=== PATIENT | male | born 1990 | race Caucasian/White ===

== ENCOUNTER 2020-11-19 11:06 | Emergency (ER) | payer OTHER, SELFPAY ==
--- NOTE | ~2020-11-19 | XR_ITS ---
EXAMINATION: XR tibia fibula LT 2V INDICATION: Left leg pain TECHNIQUE: Two views of the left tibia and fibula are obtained. COMPARISON: None available FINDINGS: There is soft tissue swelling overlying the anterior aspect of the distal leg. No underlyin g osseous abnormality is identified. Bone alignment at the knee and ankle is normal. There is no frac ture. IMPRESSION: 1. Soft tissue swelling without acute osseous abnormality. Reviewed, dictated and finalized at [facility].
[2020-11-19 11:19] VITALS: BP 133/74; PULSE 114; RESP 16; TEMP 36.1; O2SAT 100
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
== END 2020-11-19 12:01 | disposition home or self-care (01) ==
PROVIDERS: Emergency Provider Nurse Practitioner
DX: S80.12XA Contusion of left lower leg, initial encounter (principal); V43.52XA Car driver injured in collision with other type car in traffic accident, initial encounter
CPT/HCPCS: 73590; 99203; G0463

== ENCOUNTER 2021-05-14 17:40 | Emergency (ER) | payer SELFPAY ==
[2021-05-14 17:50] VITALS: BP 133/87; PULSE 108; RESP 20; TEMP 36.8; O2SAT 98
--- NOTE | 2021-05-14 17:55 | ED.ABDPAIN ---
HPI - Abdominal Pain General Chief Complaint: Abdominal Pain Stated Complaint: vomitting, abdominal pain Time Seen by Provider: 05/14/21 17:55 Source: patient, family (Mom), RN notes reviewed and old records reviewed Mode of arrival: ambulatory Limitations: no limitations History of Present Illness HPI narrative: 30-year-old male presents to the [facility] with complaints of right lower quadrant pain with tenderness throughout, rebound tenderness right lower quadrant pain nausea vomiting and diarrhea for the last couple of days. Unknown fevers but has had chills. MD elicited complaint: abdominal pain Related Data Home Medications Medication Instructions Recorded Confirmed No Home Medications 11/19/20 11/19/20 Allergies Allergy/AdvReac Type Severity Reaction Status Date / Time erythromycin base Allergy Severe Anaphylactic Verified 05/14/21 18:14 Shock Penicillins Allergy Severe Anaphylactic Verified 05/14/21 18:14 Shock codeine AdvReac Mild Nausea and Verified 05/14/21 18:14 Vomiting Review of Systems Review of Systems: All systems reviewed & are unremarkable except as noted in HPI and below Constitutional: Constitutional: Reports as per HPI, Reports chills and Denies fever(s) Eyes: Eyes: Reports no additional eye complaints ENT: Reports system reviewed and no additional complaints, except as documented Cardiovascular: Cardiovascular: Reports no additional cardiovascular complaints Respiratory: Respiratory: Reports no additional respiratory complaints Gastrointestinal: Gastrointestinal: Reports as per HPI, Reports abdominal pain, Reports diarrhea, Reports nausea and Reports vomiting Musculoskeletal: Musculoskeletal: Reports no additional musculoskeletal complaints Integumentary/Breasts: Skin/Breast: Reports system reviewed and no additional complaints, except as docu Neurologic: Reports system reviewed and no additional complaints, except as documented Psychiatric: Psychiatric: Reports no additional psychiatric complaints Allergic/Immunologic: Allergic/Immunologic: Reports no additional allergic/immunologic complaints [facility] Past Medical History Medical History (Updated 05/14/21 @ 18:18 by Cheri Baumann APRN) Patient denies medical problems Surgical History Surgical History (Updated 05/14/21 @ 18:16 by Cheri Baumann APRN) No pertinent past surgical history Social History Social History (Updated 05/14/21 @ 18:16 by Cheri Baumann APRN) Living arrangements: with family Gender identity (if verbalized by the patient): Male Comments At the time of my signature, I reviewed and agree with the nursing past medical, surgical, social, and family history. There is no relevant family history pertinent to the patient complaint. Exam Const: General: no acute distress, alert, acute distress mild and ill appearing acutely Nutritional Appearance: well nourished and obese Orientation/consciousness: patient oriented x3 Limitations: no limitations HENMT: Head: normal to inspection Ears: external ears normal Eyes: Pupils: Equal, round and reactive pupils present Neck: Neck: normal visual inspection, no lymphadenopathy and no meningeal signs Chest: Chest palpation & inspection: normal inspection of the chest Resp: Effort & Inspection: normal respiratory effort and no use of accessory muscles Auscultation: clear to auscultation bilaterally, no crackles, no rales, no rhonchi and no wheezes Cardio: Rate: regular rate Rhythm: regular rhythm GI: GI Palp: Yes Soft to palpation, Yes Tenderness to palpation present (GI), Yes Guarding due to palpation present (GI) and Yes Rebound tenderness present (Right lower quadrant) Auscultation: Hypoactive bowel sounds present Skin: General skin exam: normal color Rashes: no rashes Wounds: no wounds Neuro: General: patient oriented x3, moves all extremities, no meningeal signs and no focal motor deficits Cranial nerves: Yes Equal, round and
[2021-05-14 18:14] VITALS: BP 133/87; PULSE 108; RESP 20; TEMP 36.8; O2SAT 98
== END 2021-05-14 18:15 | disposition short-term general hospital (02) ==
PROVIDERS: Emergency Provider Nurse Practitioner; PCP Physician Assistant
DX: R10.31 Right lower quadrant pain (principal)
CPT/HCPCS: 99212; G0463

== ENCOUNTER 2021-05-14 19:07 | Emergency (ER) | payer SELFPAY ==
--- NOTE | ~2021-05-14 | CT_ITS ---
EXAMINATION: CT abdomen pelvis w con DATE: 05/14/2021 20:02 INDICATION: Generalized abdominal pain for one week. TECHNIQUE: Computed tomography (CT) of the abdomen and pelvis was performed with 100 CC Omnipaque 350 intravenous contrast. Automated exposure control and iterative reconstruction technique were employe d. Exam dose: 927.43 mGy-cm total exam DLP. COMPARISON: 03/14/2013 CT chest abdomen pelvis FINDINGS: The lung bases are clear. Normal heart size. No pericardial or pleural effusion. Very small sliding hiatal hernia. Diffuse hepatic steatosis. The liver, gallbladder, bile ducts, pancreas, pancreatic duct, spleen, and adrenal glands and kidneys are otherwise unremarkable. No urinary tract calculus or hydroureteroneph rosis. The urinary bladder and prostate gland and seminal vesicles are unremarkable. There is a small amount of free fluid in the dependent lower pelvis. Normal caliber of the abdominal aorta. No intraperitoneal or retroperitoneal or pelvic mass lesion or adenopathy. Very small fat-containing umbilical hernia. Normal appendix. There is nonspecific fluid distention of distal ileum primarily., Without abnormal dilatation, bowel wall thickening or pneumatosis. Consider mild adynamic ileus versus nonspecific infectious or inflamm atory enteritis. There is no abnormal distention or thickening of the wall of the colon. No intraperi toneal free air. Mild degenerative spurring of the thoracic spine. Included skeletal structures are otherwise unremark able. IMPRESSION: Nonspecific fluid distended ileum; consider mild ileus, inflammatory or infectious enter itis Normal appendix Small nonspecific fluid accumulation in the lower dependent pelvis Reviewed, dictated and finalized at [facility]. Reviewed, dictated and finalized at [facility]. IMPRESSION: Nonspecific fluid distended ileum; consider mild ileus, inflammato ry or infectious enteritis Normal appendix Small nonspecific fluid accumulation in the lower dependent pelvis
[2021-05-14 19:08] VITALS: BP 131/95; PULSE 112; RESP 18; TEMP 36.4; O2SAT 99
[2021-05-14] MEDS: ONDANSETRON INJ 4 MG/2 ML VIAL IV PUSH (19:42)
[2021-05-14] MEDS: SODIUM CHLORIDE 0.9% IV 1,000 ML 999 ML IV CONT (19:42)
[2021-05-14] MEDS: MORPHINE SULFATE (*CRX) 4 MG/ML INJ IV PUSH (19:44)
--- NOTE | 2021-05-14 20:36 | ED.ABDPAIN ---
HPI - Abdominal Pain General Chief Complaint: Abdominal Pain Stated Complaint: abdominal pain Time Seen by Provider: 05/14/21 19:20 Source: RN notes reviewed History of Present Illness HPI narrative: Patient presents emergency department from home for abdominal pain. Patient states symptoms began approximately 1 week ago and increased yesterday with pain in the right lower quadrant pain is described as cramping in nature. Has been associated with nausea vomiting and diarrhea he denies any fevers or chills chest pain shortness of breath or any other symptoms. States he not taking thing for pain at home patient was seen in the emergency department earlier in the left ago seen to be seen in urgent care and had been referred back from urgent care for rule out appendicitis lab work was done initial evaluation Related Data Allergies Allergy/AdvReac Type Severity Reaction Status Date / Time erythromycin base Allergy Severe Anaphylactic Verified 05/14/21 18:14 Shock Penicillins Allergy Severe Anaphylactic Verified 05/14/21 18:14 Shock codeine AdvReac Mild Nausea and Verified 05/14/21 18:14 Vomiting Review of Systems Review of Systems: Gen.: Denies fevers or chills ENT: Denies congestion Respiratory: Denies shortness of breath or cough CV: Denies chest pain or palpitations GI: See HPI denies burning, urgency, frequency or hematuria Musculoskeletal: Denies back pain or muscle pain Neuro: Denies numbness, tingling, weakness or focal weakness Skin: Denies rash Except as documented, all other systems reviewed and negative PMFSH Past Medical History Medical History Patient denies medical problems Surgical History Surgical History (Updated 05/14/21 @ 18:16 by Cheri Baumann APRN) No pertinent past surgical history Social History Social History Gender identity (if verbalized by the patient): Male Exam Narrative: APPEARANCE: No acute distress, nontoxic, resting in bed HEENT: Normocephalic, atraumatic, OMM RESPIRATORY: No respiratory distress, clear to auscultation bilaterally with no rhonchi wheezing or rales CARDIOVASCULAR: RRR s murmur ABDOMINAL: Soft nondistended diffusely tender palpation with increased tenderness right lower quadrant no rebound or guarding MUSCULOSKELETAl: Moves all extremities. No clubbing, cyanosis or edema. NEURO: Awake and alert. Following commands, speech normal, no focal deficits SKIN:: Warm, dry. Normal Color PSYCHIATRIC: Normal affect/mood Course Course Emergency Course: Reviewed records from before including lab results Patient states that they are feeling much better at this time. States abdominal pain has improved.. Repeat abdominal exam shows the patient's abdomen to be soft with no surgical abdomen present. Discussed with patient results of workup and diagnosis. Discussed need for follow-up with primary care physician, reasons to return to the emergency department in proper use of medication. Patient understands and agrees to current treatment plan Vital Signs Vital signs: Vital Signs Temperature 97.5 F L 05/14/21 19:08 Pulse Rate 112 H 05/14/21 19:08 Respiratory Rate 18 05/14/21 19:08 Blood Pressure 131/95 H 05/14/21 19:08 Pulse Oximetry 99 05/14/21 19:08 Temperature 97.5 F L 05/14/21 19:08 Pulse Rate 112 H 05/14/21 19:08 Respiratory Rate 18 05/14/21 19:08 Blood Pressure 131/95 H 05/14/21 19:08 Pulse Oximetry 99 05/14/21 19:08 MDM - Abdominal Pain MDM Narrative Medical decision making narrative: Patient's abdomen is soft without significant pain or signs of surgical abdomen on serial exams. Lab and x-ray evaluations are reviewed and patient is felt to be a reasonable candidate for outpatient management. Patient was instructed as to limitations of x-ray and laboratory evaluation and encouraged to return to ED or primary physici
[2021-05-14] MEDS: KETOROLAC 30 MG/ML VIAL (*BKC) IV PUSH (20:45)
[2021-05-14] MEDS: metroNIDAZOLE 250 MG TABLET 500 MG PO (20:46)
[2021-05-14 21:01] VITALS: BP 133/92; PULSE 95; RESP 17; O2SAT 99
== END 2021-05-14 21:06 | disposition home or self-care (01) ==
PROVIDERS: Emergency Provider Emergency Medicine; PCP Physician Assistant
DX: K52.9 Noninfective gastroenteritis and colitis, unspecified (principal)
CPT/HCPCS: 74177; 96361; 96374; 96375; 99284; A9270; J1885; J2270; J2405; J7030; Q9967